=== PATIENT | female | born 1965 | race African-American/Black ===

== ENCOUNTER 2017-06-19 18:51 | Emergency (ER) | payer MEDICARE, MEDICAID ==
[2017-06-19 20:22] LABS: #Basophils 0.1 thou/uL (0.0-0.2); #Eosinphils 0.2 thou/uL (0.0-0.7); #Lymphocytes 3.8 thou/uL (1.20-3.40); #Monocytes 0.7 thou/uL (0.11-0.59); #Neutrophils 3.2 thou/uL (1.40-6.50); %Eosinophils 2.7 % (0.0-10.0); %Lymphocytes 47.5 % (21.0-51.0); %Neutrophils 39.8 % (42.0-75.0); Hemoglobin 13.1 g/dL (12.0-16.0); Mean Corpuscular HGB CONC 33.3 g/dL (32.0-36.0); Mean Corpuscular Hemoglobin 30.9 pg (27.0-31.0); Mean Corpuscular Volume 92.7 fl (81.0-99.0); Mean Platelet Volume 6.3 fL (7.4-10.4); Platelet Count 375 thou/uL (130-400); RBC Distribution Width 12.7 % (11.5-14.5); Red Blood Cell (RBC) Count 4.23 mill/uL (4.20-5.40)
[2017-06-19 20:31] LABS: Bilirubin Negative (Negative); Blood, Urine Negative (Negative); Clarity CLOUDY (Clear); Glucose, Urine (Dipstick) Negative (Negative); Leukocyte Large (Negative); Nitrite Negative (Negative); Protein, Urine (Dipstick) Negative (Neg-Trace)
[2017-06-19 20:34] LABS: Bacteria/HPF None Seen HPF (None Seen); Hyaline Casts/LPF 0-3 HYALINE CAST LPF (0-3 Hyaline); Pathc Cast-AUWi Flag 0.67 (0-2.49); WBC/HPF 21-50 HPF (0-3)
[2017-06-19 20:42] LABS: ALT (SGPT) 15 U/L (8-55); AST (SGOT) 17 U/L (5-34); Albumin 4.2 g/dL (3.5-5.0); Alkaline Phosphatase 89 U/L (40-150); Anion Gap 14 mmol/L (10-20); BUN (Urea Nitrogen) 11 mg/dL (9.8-20.1); Bilirubin, Total 0.2 mg/dL (0.2-1.2); Calc. Creatinine Clearance 0 mL/min (70-130); Calcium 9.5 mg/dL (7.8-10.44); Carbon Dioxide 21 mmol/L (22-29); Chloride 108 mmol/L (98-107); Estimated GFR-MDRD 89; Globulin 3.4 g/dL (2.4-3.5); Glucose 85 mg/dL (70-105); Potassium 3.8 mmol/L (3.5-5.1); Protein, Total 7.6 g/dL (6.0-8.3); Sodium 139 mmol/L (136-145)
[2017-06-19 20:46] LABS: CKMB 2.9 ng/mL (0-6.6); Troponin I Less than 0.010 ng/mL (< 0.028)
--- NOTE | 2017-06-19 22:06 | RAD ---
TWO VIEW CHEST: 06/19/17 HISTORY: Dyspnea. Lungs are clear. No evidence of infiltrate. The heart and mediastinum appear normal. IMPRESSION: No acute abnormalities. POS: [facility]
== END 2017-06-19 22:45 | disposition home or self-care (01) ==
LOC: ERS 18:51
DX: J40 Bronchitis, not specified as acute or chronic (principal); R60.0 Localized edema; I10 Essential (primary) hypertension; Z87.891 Personal history of nicotine dependence; W19.XXXA Unspecified fall, initial encounter
CPT/HCPCS: 36415; 71046; 80053; 81003; 81015; 82553; 83880; 84484; 85025; 93005

== ENCOUNTER 2018-06-16 06:45 | Outpatient (CLI) | payer MEDICARE, MEDICAID ==
[2018-06-16 17:46] LABS: Mean Corpuscular HGB CONC 32.8 g/dL (32.0-36.0); Mean Corpuscular Hemoglobin 29.3 pg (27.0-31.0); Mean Corpuscular Volume 89.2 fL (78.0-98.0); Mean Platelet Volume 6.6 fL (7.4-10.4); Platelet Count 351 thou/uL (130-400); RBC Distribution Width 12.7 % (11.5-14.5); Red Blood Cell (RBC) Count 4.11 mill/uL (4.20-5.40); White Blood Cell (WBC) Count 7.9 thou/uL (4.8-10.8)
[2018-06-16 17:52] LABS: PTT 28.4 SEC (22.9-36.1); Prothrombin Time 12.8 SEC (12.0-14.7)
[2018-06-16 18:00] LABS: Anion Gap 12 mmol/L (10-20); BUN (Urea Nitrogen) 12 mg/dL (9.8-20.1); Calc. Creatinine Clearance 0 mL/min (70-130); Calcium 9.4 mg/dL (7.8-10.44); Carbon Dioxide 24 mmol/L (22-29); Chloride 108 mmol/L (98-107); Estimated GFR-MDRD 84; Glucose 94 mg/dL (70-105); Potassium 3.8 mmol/L (3.5-5.1); Sodium 140 mmol/L (136-145)
--- NOTE | 2018-06-17 21:10 | EKG ---
Test Reason : Blood Pressure : / mmHG Vent. Rate : 086 BPM Atrial Rate : 086 BPM P-R Int : 154 ms QRS Dur : 086 ms QT Int : 370 ms P-R-T Axes : 072 083 058 degrees QTc Int : 442 ms Normal sinus rhythm Possible Anterior infarct , age undetermined Abnormal ECG When compared with ECG of 19-JUN-2017 19:53, No significant change was found Confirmed by Jesusita MIRAMONTES ([id number]) on 06/17/2018 9:09:46 PM Referred By: [employer] Confirmed By:Jesusita MIRAMONTES
== END 2018-06-16 06:46 | disposition home or self-care (01) ==
LOC: LABBT 06:45
PROVIDERS: ATTEND Surgery
DX: Z01.818 Encounter for other preprocedural examination (principal); M54.16 Radiculopathy, lumbar region; M48.061 Spinal stenosis, lumbar region without neurogenic claudication
CPT/HCPCS: 80048; 85027; 85610; 85730; 93005; 93010

== ENCOUNTER 2018-06-21 08:07 | Day surgery (SDC) | payer MEDICARE, MEDICAID ==
[2018-06-16 17:25] VITALS: BMI 27.4
[2018-06-21] MEDS ORDERED: CEFAZOLIN 2 GM/50 ML BAG ONE (09:00)
[2018-06-21] MEDS ORDERED: Thrombin 5000 UNITS/5 ML VIAL ONE (12:03)
[2018-06-21] MEDS ORDERED: Sodium Chloride 0.9% 10 ML ONE (12:03)
[2018-06-21] MEDS ORDERED: Bacitracin Zinc Ointment 30 gm TUBE ONE (12:03)
[2018-06-21] MEDS ORDERED: Fentanyl 100 MCG/2 ML VIAL ONE ×5 (12:58→16:46)
[2018-06-21] MEDS ORDERED: Albuterol Sulfate HFA (OR ONLY) ONE (15:41)
[2018-06-21] MEDS ORDERED: PROPOFOL 200 MG/20 ML VIAL ONE (16:17)
[2018-06-21] MEDS ORDERED: Glycopyrrolate 0.2 MG/ML 5 ML SYRINGE ONE (16:17)
[2018-06-21] MEDS ORDERED: Dexamethasone 20 MG/5 ML VIAL ONE (16:17)
[2018-06-21] MEDS ORDERED: Ondansetron PF 4 MG/2 ML Vial ONE (16:17)
[2018-06-21] MEDS ORDERED: ePHEDrine/0.9% NaCl/PF SYRINGE 50 mg/10 ml ONE (16:17)
[2018-06-21] MEDS ORDERED: Rocuronium Bromide 10 MG/ML (10ML VIAL) ONE (16:17)
[2018-06-21] MEDS ORDERED: Lidocaine 1% PF 5 ML VIAL ONE (16:17)
[2018-06-21] MEDS ORDERED: Acetaminophen/Codeine 30-300mg Tablet PO PRN (16:38)
[2018-06-21] MEDS ORDERED: Milk Of Magnesia 30 ML UDCUP PO PRN (16:38)
[2018-06-21] MEDS ORDERED: Acetaminophen 325 MG TAB PO PRN (16:38)
[2018-06-21] MEDS ORDERED: Mag-Al 1200 mg/1200 mg/30 ML UDCUP PO PRN (16:38)
[2018-06-21] MEDS ORDERED: Promethazine HCl 25 MG/ML VIAL IM PRN ×2 (16:38→17:36)
[2018-06-21] MEDS ORDERED: Fleet Enema 133 ML BOT PR PRN (16:38)
[2018-06-21] MEDS ORDERED: Bisacodyl 10 MG SUPP PR PRN (16:38)
[2018-06-21] MEDS ORDERED: Morphine 2 MG/ML SYRINGE SLOW IVP PRN (16:38)
[2018-06-21] MEDS ORDERED: PROVENTIL INHALER 6.7 G (200 INHALATIONS) INH PRN (16:41)
[2018-06-21] MEDS ORDERED: Sodium Chloride 0.9% 1,000 ML IV SCH (16:45)
[2018-06-21] MEDS ORDERED: CEFAZOLIN/Water 2 GM/20 ML SYRINGE SLOW IVP SCH (16:45)
[2018-06-21] MEDS ORDERED: CEFAZOLIN 2 GM/50 ML-DEXTROSE 2 GM in Premix Bag 1 BAG IVPB SCH (17:00)
[2018-06-21] MEDS ORDERED: Promethazine HCl 25 MG/ML VIAL SLOW IVP PRN (17:36)
[2018-06-21] MEDS ORDERED: Ondansetron HCl/PF 4 MG/2 ML Vial IVP PRN (17:36)
[2018-06-21] MEDS: HYDROcodone/Acetaminophen 7.5/325 mg Tablet PO PRN (19:33)
[2018-06-21] MEDS: CEFAZOLIN 2 GM/50 ML-DEXTROSE 2 GM in Premix Bag 1 BAG IVPB SCH (21:23)
[2018-06-21] MEDS: traMADol HCl 50 MG TAB PO PRN (21:24)
[2018-06-21] MEDS: Gabapentin 300 MG CAP PO SCH (21:25)
[2018-06-22] MEDS: HYDROcodone/Acetaminophen 7.5/325 mg Tablet PO PRN (03:07)
[2018-06-22] MEDS: CEFAZOLIN 2 GM/50 ML-DEXTROSE 2 GM in Premix Bag 1 BAG IVPB SCH (05:30)
[2018-06-22 08:13] VITALS: BP 141/90; TEMP 98.1
[2018-06-22] MEDS ORDERED: Cyclobenzaprine 10 MG TAB PO SCH (09:00)
--- NOTE | 2018-06-22 10:01 | PRG ---
DATE OF SERVICE: 06/22/2018 SUBJECTIVE: Ms. Cervantes is doing well postoperative day #1 from multilevel lumbar decompression. She has had resolution of leg pain. She is mobilizing. We will plan to dismiss her. Job ID: [id number]
[2018-06-22] MEDS: traMADol HCl 50 MG TAB PO PRN (11:06)
[2018-06-22] MEDS: Gabapentin 300 MG CAP PO SCH (11:07)
--- NOTE | 2018-06-23 07:55 | OP ---
DATE OF PROCEDURE: 06/21/2018 OPERATING ROOM: OR 11. WOUND CLASSIFICATION: Type 1 wound. YOUTH ACC[employer]MODATION SUPPORT WORKER: Harshad Craft PA-C. PREPROCEDURE DIAGNOSIS: Multilevel lumbar stenosis with low back and leg pain with lumbar disk extrusion. POSTPROCEDURE DIAGNOSIS: Multilevel lumbar stenosis with low back and leg pain with lumbar disk extrusion. PROCEDURES PERFORMED: 1. L3-L4 laminectomy, partial facetectomy, and foraminotomy. 2. Left L4-L5 and left L5-S1 hemilaminotomy and foraminotomy with diskectomy. 3. Use of operative microscope for microdissection. DESCRIPTION OF PROCEDURE: After informed consent was obtained from the patient, the patient was brought to the OR. Proper patient pause and identification were carried out. She was positioned prone, and L3 through S1 segments were sterilely cleansed, prepared, and draped with the skin overlying. A linear frankie was made. This region was again sterilely cleansed, prepared, and draped. Proper patient pause and identification were carried out. The wound was then opened with combination of sharp, monopolar, and blunt dissection. The L3-L4, left L5, and left S1 segments were exposed. Localization film confirmed our area of interest. We then performed an L3-L4 laminectomy, partial facetectomy, and foraminotomies with left L4-L5 hemilaminotomy, foraminotomy, and diskectomy with left L5-S1 hemilaminotomy, foraminotomy. We had excellent decompression of the nerve roots. Copious irrigation occurred throughout. We maximized hemostasis. The wound was then closed in anatomic layers following the sprinkle of vancomycin powder. The patient then emerged from anesthesia. Job ID: [id number]
== END 2018-06-22 11:15 | disposition home or self-care (01) ==
LOC: SDC 08:07 → 3SE 17:07 → SDC 06-22 11:15
PROVIDERS: ATTEND Surgery
PROC: 01NB0ZZ Release Lumbar Nerve, Open Approach (ICD-10-PCS; principal; 2018-06-21)
DX: M48.061 Spinal stenosis, lumbar region without neurogenic claudication (principal); M51.16 Intervertebral disc disorders with radiculopathy, lumbar region; Z79.899 Other long term (current) drug therapy
CPT/HCPCS: 76000; J1100; J2001; J2405; J2704; J3010; J3370; J3490

== ENCOUNTER 2019-02-27 12:01 | Outpatient (CLI) | payer MEDICARE, MEDICAID ==
[2019-02-27] MEDS ORDERED: Gadobenate Dimeglumine 529 MG/1 ML (20ML VIAL) ONE (12:38)
--- NOTE | 2019-02-27 13:54 | MRI ---
EXAM: MRI Cervical Spine WO Con PROVIDED CLINICAL HISTORY: Neck pain COMPARISON: None FINDINGS: Cervical alignment appears normal. Vertebral body heights appear preserved. No focal concerning regio nal marrow signal abnormality is evident. The visualized posterior fossa, cervicomedullary junction and cervical spinal cord demonstrate normal signal and morphology. At C2-3, there is no significant central canal or foraminal narrowing apparent. At C3-4, there is right-sided uncinate process hypertrophy with mild right foraminal narrowing. There is no significant central canal or left foraminal narrowing apparent. At C4-5, there is bilateral uncinate process hypertrophy, right greater than left as well as right-si ded facet arthritis. There is mild right foraminal narrowing. There is no significant left foraminal narrowing. There is effacement of the ventral subarachnoid space by a broad-based disc oste ophyte complex with associated mild cord flattening. At C5-6, there is a broad-based disc osteophyte complex and bilateral uncinate process hypertrophy. T here is mild right foraminal narrowing. There is effacement of the ventral subarachnoid space without cord contact or deformity apparent. At C6-7, there is a broad-based disc osteophyte complex and bilateral uncinate process hypertrophy. T here is at least moderate bilateral foraminal narrowing. There is effacement of the ventral subarachnoid space with flattening of the ventral cord. At C7-T1, there is right-sided uncinate process hypertrophy producing at least moderate right foramin al narrowing. There is no significant central canal or left foraminal narrowing apparent. IMPRESSION: Cervical degenerative changes producing canal and foraminal narrowing as described.
--- NOTE | 2019-02-27 14:11 | MRI ---
MR THORACIC SPINE WITHOUT CONTRAST INDICATION: Left hand weakness, neck pain COMPARISON: None. FINDINGS: No intrinsic expansile lesion of the thoracic spinal cord identified. Vertebral body heights are maintained. No acute marrow edema. No significant subluxation. T1-T2: No significant stenosis. T2-3: No significant stenosis. T3-4: No significant stenosis. T4-5: No significant stenosis. T5-6: No significant stenosis. T6-7: Minimal disc osteophyte, without significant stenosis. T7-8: Minimal disc osteophyte, without significant stenosis. T8-9: No significant stenosis. T9-10: No significant stenosis. T10-11: No significant stenosis. T11-12: No significant stenosis. IMPRESSION: No significant central canal stenosis, or cord compromise throughout the thoracic spine.
--- NOTE | 2019-02-27 15:37 | MRI ---
MRI Lumbar Spine with and without contrast: HISTORY: Pain COMPARISON: None FINDINGS: Conus medullaris is normal in morphology and terminates at the T12-L1 level. Evidence of posterior decompression is present involving the L3-4 through L5-S1 level. Circumferentia l enhancement of the operative sites, spanning L3-4 through L5-S1, is present, indicating epidural fibrosis. There is grade 1 spondylolisthesis at L3-4. Multilevel bilateral moderate facet osteoarthritis is pre sent. L1-2:Mild effacement of ventral thecal sac due to concentric disc bulge. There is mild bilateral neur al foraminal narrowing. L2-3:Broad-based disc osteophyte along with facet hypertrophy and prominence of ligamentum flavum res ults in moderate central canal stenosis, and moderate bilateral neural foraminal stenosis. L3-4:There is spondylolisthesis, broad-based disc osteophyte, bilateral facet hypertrophy and redunda ncy of ligamentum flavum which results in moderate to severe central canal stenosis. There is severe right and mild to moderate left neural foraminal stenosis. L4-5:Disc osteophyte complex, broad-based, with superimposed right paracentral/subarticular disc prot rusion is present. This does produce the potential for impingement upon the traversing right L5 nerve root, and mild to moderate central canal stenosis. There is moderate left and mild/moderate rig ht neural foraminal stenosis. L5-S1:Concentric disc osteophyte is present, asymmetric to the left with mild central canal stenosis, and moderate left and minimal right neural foraminal stenosis. Encasement of the traversing left S1 nerve root by epidural fibrosis. Incidental note of T2 hyperintensity the left hemipelvis that may relate to adnexal cyst formation al though is incompletely evaluated. IMPRESSION: Multilevel prominent degenerative change of the postoperative lumbar spine as outlined above. This is most pronounced at the L3-4 level with moderate to severe central canal stenosis when combined with grade 1 spondylolisthesis. Postoperative circumferential epidural enhancement of the mid to lower lumbar spine compatible with e pidural fibrosis, which does encase the traversing left S1 nerve root. Incidental note of appearance of cyst formation of left adnexa. Recommend dedicated pelvic ultrasound to further evaluate. Transcribed Date/Time: 02/27/2019 4:19 PM
--- NOTE | 2019-02-27 16:00 | RAD ---
EXAM: 3 view cervical spine PROVIDED CLINICAL HISTORY: Neck pain COMPARISON: None FINDINGS: Neutral lateral, flexion lateral and extension lateral images of the cervical spine submitted. The sk ull base through the C5 vertebral body visualized on these images. There is disc space narrowing and osteophyte formation at C4-5 and C5-6. There is no evidence for abnormal translational motion inv olving the visualized portions of the cervical spine. Visualized cervical alignment appears normal. IMPRESSION: As above.
--- NOTE | 2019-02-27 16:01 | RAD ---
EXAM: XR Lumbar Spine 2 Or 3 View PROVIDED CLINICAL HISTORY: Low back pain. Spinal stenosis lumbar region. COMPARISON: None FINDINGS: There is grade 1 anterolisthesis of L3 on L4 measuring 6 mm on extension and 8.5 mm on flexion and me asuring less than 5 mm on neutral positioning. No additional level of subluxation is seen. There are laminectomy defects posteriorly at the L3-4 and L4-5 levels. Vertebral body heights are within no rmal limits. There is narrowing of the intervertebral disc spaces involving the lower lumbar spine with multilevel osteophytes as well as facet degenerative changes. IMPRESSION: Postsurgical and degenerative changes of the lumbar spine. There is grade 1 anterolisthesis of L3 on L4 with evidence of abnormal translational motion between the flexion and extension views.
== END 2019-02-27 12:02 | disposition home or self-care (01) ==
LOC: BICMRI 12:01
PROVIDERS: ATTEND Physician Assistant Surgical
DX: M48.061 Spinal stenosis, lumbar region without neurogenic claudication (principal); M47.26 Other spondylosis with radiculopathy, lumbar region; R29.898 Other symptoms and signs involving the musculoskeletal system; M54.5 Low back pain; M54.2 Cervicalgia; R26.89 Other abnormalities of gait and mobility; M43.16 Spondylolisthesis, lumbar region; M25.78 Osteophyte, vertebrae; M50.121 Cervical disc disorder at C4-C5 level with radiculopathy; Z98.890 Other specified postprocedural states
CPT/HCPCS: 72040; 72100; 72141; 72146; 72158; A9577

== ENCOUNTER 2019-03-30 06:28 | Outpatient (CLI) | payer MEDICARE, MEDICAID ==
[2019-03-30 10:23] LABS: Hemoglobin 12.4 g/dL (12.0-16.0); Mean Corpuscular HGB CONC 33.5 g/dL (32.0-36.0); Mean Corpuscular Volume 89.7 fL (78.0-98.0); Mean Platelet Volume 6.4 fL (7.4-10.4); Platelet Count 367 thou/uL (130-400); Red Blood Cell (RBC) Count 4.11 mill/uL (4.20-5.40)
[2019-03-30 10:33] LABS: Prothrombin Time 13.1 SEC (12.0-14.7)
[2019-03-30 10:43] LABS: Anion Gap 12 mmol/L (10-20); BUN (Urea Nitrogen) 12 mg/dL (9.8-20.1); Calc. Creatinine Clearance 0 mL/min (70-130); Calcium 9.3 mg/dL (7.8-10.44); Carbon Dioxide 25 mmol/L (22-29); Chloride 107 mmol/L (98-107); Estimated GFR-MDRD 90; Glucose 87 mg/dL (70-105); Potassium 3.1 mmol/L (3.5-5.1); Sodium 141 mmol/L (136-145)
--- NOTE | 2019-03-30 16:50 | EKG ---
Test Reason : Blood Pressure : / mmHG Vent. Rate : 089 BPM Atrial Rate : 089 BPM P-R Int : 120 ms QRS Dur : 094 ms QT Int : 384 ms P-R-T Axes : -12 -16 004 degrees QTc Int : 467 ms Normal sinus rhythm Voltage criteria for left ventricular hypertrophy Nonspecific ST abnormality Abnormal ECG Confirmed by BRONWYN ROJO ([id number]) on 03/30/2019 4:50:33 PM Referred By: [employer] Confirmed By:BRONWYN ROJO
== END 2019-03-30 06:29 | disposition home or self-care (01) ==
LOC: LABBT 06:28
PROVIDERS: ATTEND Surgery
DX: Z01.818 Encounter for other preprocedural examination (principal); M48.02 Spinal stenosis, cervical region; M47.812 Spondylosis without myelopathy or radiculopathy, cervical region
CPT/HCPCS: 80048; 85027; 85610; 85730; 87081; 93005; 93010

== ENCOUNTER 2019-05-22 09:45 | Outpatient (CLI) | payer MEDICARE, MEDICAID ==
--- NOTE | 2019-05-22 10:18 | RAD ---
XR Cerv Sp Ap Lat STANDARD: 05/22/2019 12:00 AM CLINICAL INDICATION: Cervical strain COMPARISON: 02/27/2019 FINDINGS: Fracture:No fracture. Arthropathy:Moderate multilevel degenerative change of the postoperative cervical spine. ACDF spans the C4-C7 segments, incompletely visualized inferiorly on the provided views due to decrea sed penetration as result of overlying structures. There is anterior metal plate with vertebral body screws and intervening disc space prostheses. Within limitations no discrete evidence of acute h ardware complication. Incidental findings:None of significance. IMPRESSION: 1. No acute osseous abnormality involving postoperative cervical spine.
== END 2019-05-22 09:46 | disposition home or self-care (01) ==
LOC: TBSIIMAG 09:45
PROVIDERS: ATTEND Surgery
DX: S16.1XXA Strain of muscle, fascia and tendon at neck level, initial encounter (principal); Z98.890 Other specified postprocedural states
CPT/HCPCS: 72040